=== PATIENT | female | born 1965 | race African-American/Black ===

== ENCOUNTER 2017-03-16 08:26 | Emergency (ER) | payer SELFPAY ==
[2017-03-16 08:34] VITALS: BP 175/103
--- NOTE | 2017-03-16 08:58 | ER Document Report ---
HPI - HPI Patient complains to provider of: toothache Pain Level: Denies Context: patient is a 51 year old female who presents to the ED complaining of swelling and toothache around a fractured tooth that shes had. she states her dentist did not plan on pulling it. she has not had an infection here before, no drainage/foul odor. No dysphagia, dyspnea, fever, chills PMH: HTN - CARDIOVASCULAR Cardiovascular: DENIES: Chest pain - REPRODUCTIVE Reproductive: DENIES: : - DERM Skin Color: Normal Past Medical History - Social History Smoking Status: Current Every Day Smoker Chew tobacco use (# tins/day): No Frequency of alcohol use: Occasional Drug Abuse: None Family History: Reviewed & Not Pertinent Patient has suicidal ideation: No Patient has homicidal ideation: No - Past Medical History Cardiac Medical History: Reports: Hx Hypertension Renal/ Medical History: Denies: Hx Peritoneal Dialysis Past Surgical History: Reports: Hx Section - Immunizations Hx Diphtheria, Pertussis, Tetanus Vaccination: Yes Vertical Provider Document - CONSTITUTIONAL Agree With Documented VS: Yes Exam Limitations: No Limitations General Appearance: WD/WN, No Apparent Distress - INFECTION CONTROL TRAVEL OUTSIDE OF THE [place] IN LAST 30 DAYS: No - HEENT Mouth Diagram: 1 - Fracture, no evidence of abscess Notes: No evidence of peritonsillar abscess, retropharyngeal abscess. Airway is patent. Of peridental abscess or gingivitis. Tender to palpation over to 3 - NECK Neck: Normal Inspection. negative: Lymphadenopathy-Left, Lymphadenopathy-Right Notes: No evidence of Donato angina - RESPIRATORY Respiratory: Breath Sounds Normal, No Respiratory Distress, Chest Non-Tender O2 Sat by Pulse Oximetry: 96 - CARDIOVASCULAR Cardiovascular: Regular Rate, Regular Rhythm, No Murmur Course - Re-evaluation Re-evalutation: 03/16/17 09:39 Patient is a 51-year-old female who is hemodynamically stable, no acute distress and afebrile. No evidence of dental abscess requiring drainage. Will initiate patient on antibiotic and can follow up with dentist - Vital Signs Vital signs: Temp Pulse Resp BP Pulse Ox 98.3 F 101 H 16 175/103 H 96 03/16/17 08:32 03/16/17 08:32 03/16/17 08:32 03/16/17 08:32 03/16/17 08:32 Discharge - Discharge Clinical Impression: Tooth ache Condition: Good Disposition: HOME, SELF-CARE Instructions: Toothache ([facility]), Clindamycin ([facility]) Additional Instructions: Please follow-up with your dentist this week. You can take [id number] advil as needed Prescriptions: Clindamycin HCl 450 mg PO TID 7 Days Forms: Elevated Blood Pressure
== END 2017-03-16 09:00 | disposition home or self-care (01) ==
LOC: ER 08:26
DX: K08.89 Other specified disorders of teeth and supporting structures (principal); R22.0 Localized swelling, mass and lump, head; F17.200 Nicotine dependence, unspecified, uncomplicated
CPT/HCPCS: 99282

== ENCOUNTER 2018-06-04 17:13 | Emergency (ER) | payer SELFPAY ==
[2018-06-04 17:31] VITALS: BP 144/85
--- NOTE | 2018-06-04 17:44 | ER Document Report ---
HPI - HPI Patient complains to provider of: Dental pain Pain Level: 1 Context: Patient is a 52-year-old female complaining of swelling to her left lower jaw 2 days. No fever. No difficulty talking or swallowing. Associated Symptoms: None Exacerbated by: Denies Relieved by: Denies Similar symptoms previously: No Recently seen / treated by doctor: No - ROS Systems Reviewed and Negative: Yes All other systems reviewed and negative - REPRODUCTIVE Reproductive: DENIES: : Past Medical History - General Information source: Patient - Social History Smoking Status: Never Smoker Drug Abuse: None Lives with: Family Family History: Reviewed & Not Pertinent - Past Medical History Cardiac Medical History: Reports: Hx Hypertension Renal/ Medical History: Denies: Hx Peritoneal Dialysis Past Surgical History: Reports: Hx Section - Immunizations Hx Diphtheria, Pertussis, Tetanus Vaccination: Yes Vertical Provider Document - CONSTITUTIONAL Agree With Documented VS: Yes Exam Limitations: No Limitations - INFECTION CONTROL TRAVEL OUTSIDE OF THE [place] IN LAST 30 DAYS: No - HEENT HEENT: Atraumatic, PERRLA Mouth Diagram: 1 - Gingival swelling and tenderness. No abscess - NECK Neck: Normal Inspection, Supple - RESPIRATORY Respiratory: Breath Sounds Normal, No Respiratory Distress - CARDIOVASCULAR Cardiovascular: Regular Rate, Regular Rhythm - MUSCULOSKELETAL/EXTREMETIES Musculoskeletal/Extremeties: MAEW, FROM - NEURO Level of Consciousness: Awake, Alert - DERM Integumentary: Warm, Dry Course - Re-evaluation Re-evalutation: 06/04/18 17:40 History and physical are consistent with uncomplicated dental pain. No signs or symptoms of Donato's angina, peritonsillar abscess or deep tissue infection. Home care, dental follow-up and ED return precautions were discussed with patient. Patient is agreeable with plan and stable for discharge - Vital Signs Vital signs: Temp Pulse Resp BP Pulse Ox 98.1 F 92 18 144/85 H 99 06/04/18 17:28 06/04/18 17:28 06/04/18 17:28 06/04/18 17:28 06/04/18 17:28 Discharge - Discharge Clinical Impression: Pain, dental Condition: Stable Disposition: HOME, SELF-CARE Instructions: Penicillin V K ([facility]), Toothache ([facility]) Additional Instructions: Take antibiotic as prescribed Ibuprofen for discomfort and swelling Follow-up with dental for further evaluation and treatment Prescriptions: Penicillin V Potassium [Penicillin Vk 500 mg Tablet] 500 mg PO BID #20 tablet Referrals: JORJE GO MD [Primary Care Provider] - Follow up as needed
== END 2018-06-04 17:50 | disposition home or self-care (01) ==
LOC: ER 17:13
DX: K08.9 Disorder of teeth and supporting structures, unspecified (principal)
CPT/HCPCS: 99282

== ENCOUNTER 2018-06-13 17:16 | Emergency (ER) | payer SELFPAY ==
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
[2018-06-13 19:31] VITALS: BP 136/87
== END 2018-06-13 19:31 | disposition home or self-care (01) ==
LOC: ER 17:16
DX: S05.12XA Contusion of eyeball and orbital tissues, left eye, initial encounter (principal); Y04.2XXA Assault by strike against or bumped into by another person, initial encounter; Y93.89 Activity, other specified; I10 Essential (primary) hypertension; Z79.899 Other long term (current) drug therapy
CPT/HCPCS: 99283

== ENCOUNTER 2018-10-12 13:53 | Emergency (ER) | payer SELFPAY ==
[2018-10-12 14:09] VITALS: BP 132/81
--- NOTE | 2018-10-12 14:53 | ER Document Report ---
ED Oral Problem - General Chief Complaint: Toothache Stated Complaint: JAW PAIN Time Seen by Provider: 10/12/18 14:32 Mode of Arrival: Ambulatory Information source: Patient Notes: 52-year-old female presented to ED for complaint of dental pain times 2 days and now she has pain in her left lower jaw. She states she has not seen any dentist for dental pain. She states she had some swelling to her left lower jaw yesterday. Patient is alert and oriented respirations regular and unlabored speaking in full sentences walks with a even steady gait. Patient states she has not had any trouble eating or swallowing. When touched the jaw and the gums there is no tenderness. TRAVEL OUTSIDE OF THE [place] IN LAST 30 DAYS: No - HPI Patient complains to provider of: Toothache Onset: Other - Yesterday Quality of pain: Achy Severity: Mild Pain Level: 1 Associated symptoms: Toothache Worsened by: Nothing Relieved by: Nothing Similar symptoms previously: Yes Recently seen / treated by doctor/dentist: No - Related Data Allergies/Adverse Reactions: No Known Allergies Allergy (Unverified 06/04/18 17:16) Past Medical History - General Information source: Patient - Social History Smoking Status: Never Smoker Chew tobacco use (# tins/day): No Frequency of alcohol use: None Drug Abuse: None Lives with: Family Family History: Reviewed & Not Pertinent Patient has suicidal ideation: No Patient has homicidal ideation: No - Past Medical History Cardiac Medical History: Reports: Hx Hypertension Pulmonary Medical History: Reports: None EENT Medical History: Reports: None Neurological Medical History: Reports: None Endocrine Medical History: Reports: None Renal/ Medical History: Reports: None Malignancy Medical History: Reports: None GI Medical History: Reports: None Musculoskeletal Medical History: Reports None Skin Medical History: Reports None Psychiatric Medical History: Reports: None Traumatic Medical History: Reports: None Infectious Medical History: Reports: None Past Surgical History: Reports: Hx Section - x3 - Immunizations Immunizations up to date: Yes Hx Diphtheria, Pertussis, Tetanus Vaccination: Yes Review of Systems - Review of Systems Notes: REVIEW OF SYSTEMS: CONSTITUTIONAL : Denies fever, chills, or sweats. Denies recent illness. EENT: Denies eye, ear, throat, or mouth pain or symptoms. Denies nasal or sinus congestion or discharge. Denies throat, tongue, or mouth swelling or difficulty swallowing. Patient complains of a white swollen area to the lower left jaw. She states the area does not hurt it is just there. She states yesterday her jaw also was swollen but that went down. She states she had some leftover insulin and she took that and she no longer has any swelling. She has not been to the dentist. CARDIOVASCULAR: Denies chest pain. Denies palpitations or racing or irregular heart beat. Denies ankle edema. RESPIRATORY: Denies cough, cold, or chest congestion. Denies shortness of breath, difficulty breathing, or wheezing. GASTROINTESTINAL: Denies abdominal pain or distention. Denies nausea, vomiting , or diarrhea. Denies blood in vomitus, stools, or per rectum. Denies black, tarry stools. Denies constipation. GENITOURINARY: Denies difficulty urinating, painful urination, burning, frequency, blood in urine, or discharge. FEMALE GENITOURINARY: Denies vaginal bleeding, heavy or abnormal periods, irregular periods. Denies vaginal discharge or odor. MUSCULOSKELETAL: Denies back or neck pain or stiffness. Denies joint pain or swelling. SKIN: Denies rash, lesions or sores. HEMATOLOGIC : Denies easy bruising or bleeding. LYMPHATIC: Denies swollen, enlarged glands. NEUROLOGICAL: Denies confusion or altered mental status. Denies passing out or loss of consciousness. Denies dizziness or lightheadedness. Denies headache. Denies weakness or paralysis or loss of use of either side. Denies problems with gait or speech. Denies sensory loss, numbness, or tingling. Denies seizures. PHYSICAL EXAMINATION: GENERAL: Well-appearing, well-nourished and in no acute distress. HEAD: Atraumatic, normocephalic. EYES: Pupils equal round and reactive to light, extraocular movements intact, conjunctiva are normal. ENT: Small white growth to the outer gums on the left lower jaw. No redness or inflammation. Patient denies any tenderness to the right area. The right area vascular in appearance. There is no swelling to the jaw or the face. Moist mucous membranes. NECK: Normal range of motion, supple without lymphadenopathy LUNGS: Breath sounds clear to auscultation bilaterally and equal. No wheezes rales or rhonchi. HEART: Regular rate and rhythm without murmurs ABDOMEN: Soft, nontender, nondistended abdomen. No guarding, no rebound. No masses appreciated. Female : deferred Musculoskeletal: Normal range of motion, no pitting or edema. No cyanosis. NEUROLOGICAL: Cranial nerves grossly intact. Normal speech, normal gait. Normal sensory, motor exams PSYCH: Normal mood, normal affect. SKIN: Warm, Dry, normal turgor, no rashes or lesions noted. PSYCHIATRIC: Denies anxiety or stress. Denies depression, suicidal ideation, or homicidal ideation. ALL OTHER SYSTEMS REVIEWED AND NEGATIVE. Dictation was performed using vi[employer]ood voice recognition software Physical Exam - Vital signs Vitals: Temp Pulse Resp BP Pulse Ox 98.1 F 89 14 132/81 H 97 10/12/18 14:08 10/12/18 14:08 10/12/18 14:08 10/12/18 14:08 10/12/18 14:08 Course - Re-evaluation Re-evalutation: 10/12/18 21:[address] Dozier the strange looking white vascular growth to the left outer of the lower jaw. He came and examined the area also. The area is not tender to palpation there is no redness or swelling. She states it just started a couple days ago. She states it is not been bleeding. Dr. Dozier noted there was to have very small areas that were similar in appearance to the one that is patient stated she had some discomfort yesterday. Doctor recommended that the patient be instructed to follow-up with dentist and oral ENT tomorrow and to be placed on penicillin if she developed any swelling to her jaw again. Patient was discharged home with a prescription for penicillin VK and instructed to follow-up with her dentist by telephone in the morning and schedule a prompt appointment. She was also given the name and number of ENT if she could not get an appointment with her dentist. Patient verbalized understanding and agreement with treatment plan. - Vital Signs Vital signs: Temp Pulse Resp BP Pulse Ox 98.1 F 89 14 132/81 H 97 10/12/18 14:08 10/12/18 14:08 10/12/18 14:08 10/12/18 14:08 10/12/18 14:08 Discharge - Discharge Clinical Impression: White growth to left lower jaw Condition: Stable Disposition: HOME, SELF-CARE Additional Instructions: You were seen today for a growth on your left lower jaw. You state it is not painful. You state your jaw was swollen yesterday but it went away after you took a couple old penicillin. This does not look like an abscess. As you know I had the doctor come and look at it also. Her recommendation is for you to follow-up with a dentist or ENT or an oral surgeon. You stated you would call your dentist in the morning. Will write you a prescription for penicillin if the jaw starts to swell again. Take Tylenol for your pain if it starts to hurt as ibuprofen can raise your blood pressure. UPPER RESPIRATORY ILLNESS: You have a viral infection of the respiratory passages -- a "cold." This common infection causes nasal congestion, drainage, and often sore throat and cough. It is highly contagious. The disease usually lasts about 10 to 14 days. There is no "cure" for the viral infection -- it must run its course. If there is a complication, such as bacterial infection in the nose, sinuses, middle ear, or bronchial tubes, antibiotics may be required. The antibiotics won't affect the virus. Drink plenty of fluids. A humidifier may help. An expectorant medication or decongestant may make you more comfortable. Use acetaminophen or ibuprofen for fever or aches. See the doctor if fever persists over two days, if there is any significant worsening of your symptoms, or if you simply fail to improve as expected. COUGH-SUPPRESSANT & EXPECTORANT MEDICATION: You are to use a cough medication as needed for relief of symptoms. This medicine is a combination of an expectorant (to make the mucous thinner and more easily "coughed up") and a cough suppressant (to reduce the frequency of coughing). The cough-suppressant medicine is related to narcotics. You may experience mild nausea and sleepiness. Some patients who are very sensitive to narcotics may have stomach pain from this medicine. Taking the medicine with food reduces these side effects. Do not drive or work with machinery until you know how this medicine affects you. The expectorant should have no side effects. Iodine-containing expectorants (such as organidin) should not be taken by persons with active thyroid disease unless approved by your doctor. Call the doctor if you develop shortness of breath, hives, rash, itching, lightheadedness, or severe nausea and vomiting. USE OF ACETAMINOPHEN (Tylenol): Acetaminophen may be taken for pain relief or fever control. It's much safer than aspirin, offering a wider range of "safe" dosages. It is safe during . Some brand names are Tylenol, Panadol, Datril, Anacin 3, Tempra, and Liquiprin. Acetaminophen can be repeated every four hours. The following are maximum recommended dosages: >89 pounds or adults 650 mg to 900 mg Acetaminophen can be repeated every four hours. Maximum dose not to exceed 4000 mg a day. FOLLOW-UP CARE: If you have been referred to a physician for follow-up care, call the physician s office for an appointment as you were instructed or within the next two days. If you experience worsening or a significant change in your symptoms, notify the physician immediately or return to the Emergency Department at any time for re-evaluation. Prescriptions: Penicillin V Potassium [Penicillin Vk 500 mg Tablet] 500 mg PO BID #20 tablet Forms: Elevated Blood Pressure Referrals: JORJE GO MD [Primary Care Provider] - Follow up as needed RUBEN TURPIN DO [ASSOCIATE] - Follow up as needed TASNEEM GARCIA MD [ACTIVE STAFF] - Follow up as needed
== END 2018-10-12 15:03 | disposition home or self-care (01) ==
LOC: ER 13:53
DX: K13.70 Unspecified lesions of oral mucosa (principal); K08.89 Other specified disorders of teeth and supporting structures; R68.84 Jaw pain; R22.0 Localized swelling, mass and lump, head; I10 Essential (primary) hypertension
CPT/HCPCS: 99282

== ENCOUNTER 2018-10-27 09:29 | Emergency (ER) | payer SELFPAY ==
[2018-10-27 09:37] VITALS: BP 145/87
--- NOTE | 2018-10-27 10:05 | ER Document Report ---
ED General - General Chief Complaint: Medication Refill Stated Complaint: PROBLEMS WITH BLOOD PRESSURE Time Seen by Provider: 10/27/18 09:51 TRAVEL OUTSIDE OF THE [place] IN LAST 30 DAYS: No - HPI Patient complains to provider of: Medication refill Notes: Patient coming in for evaluation of hypertension and in need of medication refill. Patient states PCP is Dr. libra Chiu went to his office with a note on the front door stating that they have closed at their office patient states that she has been compliant with her blood pressure medication however is running out of her medications at this time he requires refills. Patient otherwise denies any symptoms denies any fevers chills nausea vomiting chest pain abdominal pain headaches dizziness. Patient otherwise is resting comfortably upon my evaluation. - Related Data Allergies/Adverse Reactions: No Known Allergies Allergy (Verified 10/27/18 09:31) Past Medical History - Social History Smoking Status: Unknown if Ever Smoked Family History: Reviewed & Not Pertinent Patient has suicidal ideation: No Patient has homicidal ideation: No - Past Medical History Cardiac Medical History: Reports: Hx Hypertension Renal/ Medical History: Denies: Hx Peritoneal Dialysis Past Surgical History: Reports: Hx Section - x3 - Immunizations Immunizations up to date: Yes Hx Diphtheria, Pertussis, Tetanus Vaccination: Yes Review of Systems - Review of Systems Constitutional: Other - Medication refill EENT: No symptoms reported Cardiovascular: No symptoms reported Respiratory: No symptoms reported Gastrointestinal: No symptoms reported Genitourinary: No symptoms reported Female Genitourinary: No symptoms reported Musculoskeletal: No symptoms reported Skin: No symptoms reported Hematologic/Lymphatic: No symptoms reported Neurological/Psychological: No symptoms reported Physical Exam - Vital signs Vitals: Temp Pulse Resp BP Pulse Ox 98.7 F 93 16 145/87 H 97 10/27/18 09:34 10/27/18 09:34 10/27/18 09:34 10/27/18 09:34 10/27/18 09:34 Interpretation: Normal - General General appearance: Appears well, Alert - HEENT Head: Normocephalic, Atraumatic Eyes: Normal Pupils: PERRL - Respiratory Respiratory status: No respiratory distress Chest status: Nontender Breath sounds: Normal Chest palpation: Normal - Cardiovascular Rhythm: Regular Heart sounds: Normal auscultation Murmur: No - Abdominal Inspection: Normal Distension: No distension Bowel sounds: Normal Tenderness: Nontender Organomegaly: No organomegaly - Back Back: Normal, Nontender - Extremities General upper extremity: Normal inspection, Nontender, Normal color, Normal ROM , Normal temperature General lower extremity: Normal inspection, Nontender, Normal color, Normal ROM , Normal temperature, Normal weight bearing. No: Brianda's sign - Neurological Neuro grossly intact: Yes Cognition: Normal Orientation: AAOx4 Gaudencio Coma Scale Eye Opening: Spontaneous Conrath Coma Scale Verbal: Oriented Gaudencio Coma Scale Motor: Obeys Commands Conrath Coma Scale Total: 15 Speech: Normal Motor strength normal: LUE, RUE, LLE, RLE Sensory: Normal - Psychological Associated symptoms: Normal affect, Normal mood - Skin Skin Temperature: Warm Skin Moisture: Dry Skin Color: Normal Course - Re-evaluation Re-evalutation: 10/27/18 10:04 Patient's labetalol 200 mg twice daily along with lisinopril hydrochlorothiazide 2012.5 twice daily were represcribed to the patient from her bottles patient was instructed to follow-up with PCP is given. - Vital Signs Vital signs: Temp Pulse Resp BP Pulse Ox 98.7 F 93 16 145/87 H 97 10/27/18 09:34 10/27/18 09:34 10/27/18 09:34 10/27/18 09:34 10/27/18 09:34 Discharge - Discharge Clinical Impression: Medication refill Condition: Good Disposition: HOME, SELF-CARE Instructions: High Blood Pressure ([facility]), Family Physicians / Practices Additional Instructions: Please continue your blood pressure medications as prescribed. Please follow- up with the primary care provider listed return to the ER for any concerns Prescriptions: Labetalol HCl [Normodyne 200 mg Tablet] 200 mg PO Q12 #60 tablet Lisinopril/Hydrochlorothiazide [Lisinopril-Hctz 20-12.5 mg Tab] 1 each PO BID # 60 tablet Referrals: THERESA MOLINA MD [ACTIVE STAFF] - Follow up as needed
== END 2018-10-27 10:07 | disposition home or self-care (01) ==
LOC: ER 09:29
DX: I10 Essential (primary) hypertension (principal)
CPT/HCPCS: 99281

== ENCOUNTER 2019-01-12 17:00 | Emergency (ER) | payer SELFPAY | END 2019-01-12 18:10 | disposition left against medical advice (07) | LOC: ER 17:00 | DX: Z53.21 Procedure and treatment not carried out due to patient leaving prior to being seen by health care provider (principal); I10 Essential (primary) hypertension ==

== ENCOUNTER 2019-03-28 09:53 | Emergency (ER) | payer BC ==
[2019-03-28 10:03] VITALS: BP 162/91
--- NOTE | 2019-03-28 10:15 | ER Document Report ---
HPI - HPI Time Seen by Provider: 03/28/19 10:05 Pain Level: 2 Notes: Patient is a 53-year-old female no significant past medical history aside from hypertension who presents to the emergency department complaining of a bump to her left upper eyelid that is been present for 1 week, but improving. Patient states that on occasion she does feel some irritation in the area and is not sure if this is pinkeye or an insect bite. Patient states that early on she did have some matting and discharge associated which has since improved as well. She is otherwise eating and drinking without difficulty. Denies drug allergies. No recent illness. He does not wear contact lenses. No foreign body sensation or light sensitivity. No floaters. Denies any headache, fever, head injury, neck pain, changes in vision/speech/mentation/hearing, URI, sore throat, chest pain, palpitations, syncope, cough, shortness of breath, wheeze, dyspnea, abdominal pain, nausea/vomiting/diarrhea, urinary retention, dysuria, hematuria, or rash. - ROS Systems Reviewed and Negative: Yes All other systems reviewed and negative - REPRODUCTIVE Reproductive: DENIES: : Past Medical History - Social History Smoking Status: Never Smoker Family History: Reviewed & Not Pertinent - Past Medical History Cardiac Medical History: Reports: Hx Hypertension Renal/ Medical History: Denies: Hx Peritoneal Dialysis Past Surgical History: Reports: Hx Section - x3 - Immunizations Immunizations up to date: Yes Hx Diphtheria, Pertussis, Tetanus Vaccination: Yes Vertical Provider Document - CONSTITUTIONAL Agree With Documented VS: Yes Notes: PHYSICAL EXAMINATION: GENERAL: Well-appearing, well-nourished and in no acute distress. A&Ox4 HEAD: Atraumatic, normocephalic. EYES: Pupils equal round and reactive to light, extraocular movements intact, sclera anicteric, conjunctiva left shows very mild episcleritis b/l w/o discharge or matting. Non-tender to palp of the globe and eye itself. No surrounding erythema or swelling noted. Visual acuity 20/20 b/l and in each eye (performed by myself at bedside with my own eye chart). + stye left upper eyelid without obvious abscess/fluctuance. ENT: EAC clear b/l. TM's intact b/l without erythema, fluid, or perforation. Nares patent and without discharge. oropharynx clear without exudates. No tonsilar hypertrophy or erythema. Moist mucous membranes. No sinus tenderness. Uvula midline. No palatine shift. No airway compromise. No drooling or hoarseness. NECK: Normal range of motion, supple without lymphadenopathy. No rigidity/meningismus. LUNGS: Breath sounds clear to auscultation bilaterally and equal. No wheezes rales or rhonchi. HEART: Regular rate and rhythm without murmurs, rubs, gallops. NEUROLOGICAL: Cranial nerves grossly intact. Normal speech, normal gait. Normal sensory, motor exams PSYCH: Normal mood, normal affect. SKIN: Warm, Dry, normal turgor, no rashes or lesions noted. - INFECTION CONTROL TRAVEL OUTSIDE OF THE [place] IN LAST 30 DAYS: No Course - Re-evaluation Re-evalutation: 03/28/19 10:12 Patient is an afebrile, well-hydrated, 53-year-old female who presents to the emergency department with a sty to her left upper eyelid. Vitals are acceptable without significant tachycardia, tachypnea, or hypoxia. PE is otherwise unremarkable. Patient is nontoxic-appearing and is able to tolerate p.o. without difficulty. No labs or imaging warranted. Low suspicion for any retained corneal or lid foreign body, deep space infection including orbital cellulitis/abscess, acute glaucoma, penetrating globe injury, retinal detachment, meningitis, sepsis, fracture, compartment syndrome. I will send home with a prescription for erythromycin ointment to use as directed. Conservative measures otherwise for symptoms with proper handwashing. Recheck with your PCM in 3-5 days. Consider follow-up with ophthalmology. Return to the ED with any worsening/concerning symptoms otherwise as reviewed in discharge. Patient is in agreement. - Vital Signs Vital signs: Temp Pulse Resp BP Pulse Ox 99.7 F 91 18 162/91 H 98 03/28/19 10:02 03/28/19 10:02 03/28/19 10:02 03/28/19 10:02 03/28/19 10:02 Discharge - Discharge Clinical Impression: Melissa Qualifiers: Laterality: left Eyelid: upper Qualified Code(s): H00.014 - Hordeolum externum left upper eyelid Condition: Stable Disposition: HOME, SELF-CARE Instructions: Katie ([facility]) Additional Instructions: Keep eyes clean Avoid scratching/touching eyes Wash hands regularly Use eye drops as directed Maintain adequate fluid intake tylenol/ibuprofen as needed over the counter cold medication as needed for symptoms F/u: with your PCM in 3-5 days for a recheck Consider consult with Ophthalmology for ongoing/worsening symptoms Return to the ED with any worsening symptoms and/or development of fever, headache, changes in vision, eye pain, worsening eye redness, redness around the eyes, purulent discharge, sore throat, facial swelling, neck pain/stiffness, chest pain, palpitations, syncope, shortness of breath, trouble breathing, abdominal pain, n/v/d, blood in stool/urine, dysuria, or other worsening symptoms that are concerning to you. Prescriptions: Erythromycin Base [Erythromycin Oph 1 gm Oint Ud] 1 applic OP QID #1 tube Forms: Elevated Blood Pressure Referrals: JACKSON ROBLES MD [ACTIVE STAFF] - Follow up as needed
== END 2019-03-28 10:20 | disposition home or self-care (01) ==
LOC: ER 09:53
DX: H00.014 Hordeolum externum left upper eyelid (principal); I10 Essential (primary) hypertension
CPT/HCPCS: 99282

== ENCOUNTER 2020-05-25 13:23 | Emergency (ER) | payer SELFPAY ==
[2020-05-25 14:14] VITALS: BP 174/98
--- NOTE | 2020-05-25 14:50 | ER Document Report ---
HPI - HPI Time Seen by Provider: 05/25/20 14:35 Notes: 54-year-old female presents to the emergency room today with complaints of having left-sided hearing loss, she thinks this is due to cerumen impaction. Denies any fevers or chills. Denies any trauma to her ear. Patient states she has never had any cerumen issues in the past, was unable to get into her primary care provider. Denies any ear pain. Tried cgzz-wyk-jehnlue eardrops without relief to help loosen the cerumen. Denies fevers, chills, chest pain,palpitations, shortness of breath, dyspnea, nausea, vomiting, diarrhea, abdominal pain, hematuria,blurred vision, double vision, loss of vision, speech changes, LH, dizziness, syncope, headaches, wheezing, ST, URI, neck pain, weakness, bowel or bladder dysfunction, saddle anesthesia, numbness or tingling in bilateral upper or lower extremities equally, muscle paralysis, weakness in bilateral upper or lower extremities equally or rash. Denies IV drug use. MEDICATIONS: I agree with the patient medications as charted by the RN. ALLERGIES: I agree with the allergies as charted by the RN. PAST MEDICAL HISTORY/PAST SURGICAL HISTORY: Reviewed and agree as charted by RN. SOCIAL HISTORY: Reviewed and agree as charted by RN. FAMILY HISTORY: No significant familial comorbid conditions directly related to patient complaint EXAM: Reviewed vital signs as charted by RN. REVIEW OF SYSTEMS:reviewed vital signs by RN CONSTITUTIONAL : Denies fever, chills, or sweats. Denies recent illness. EENT: Reports hearing loss on her left side. denies eye, ear, throat, or mouth pain or symptoms. Denies nasal or sinus congestion or discharge. Denies throat, tongue, or mouth swelling or difficulty swallowing. CARDIOVASCULAR: Denies chest pain. Denies palpitations or racing or irregular heart beat. Denies ankle edema. RESPIRATORY: Denies cough, cold, or chest congestion. Denies shortness of breath, difficulty breathing, or wheezing. GASTROINTESTINAL: Denies abdominal pain or distention. Denies nausea, vomiting, or diarrhea. Denies blood in vomitus, stools, or per rectum. Denies black, tarry stools. Denies constipation. GENITOURINARY: Denies difficulty urinating, painful urination, burning, frequency, blood in urine, or discharge. FEMALE GENITOURINARY: Denies vaginal bleeding, heavy or abnormal periods, irregular periods. Denies vaginal discharge or odor. MUSCULOSKELETAL: Denies back or neck pain or stiffness. Denies joint pain or swelling. SKIN: Denies rash, lesions or sores. HEMATOLOGIC : Denies easy bruising or bleeding. LYMPHATIC: Denies swollen, enlarged glands. NEUROLOGICAL: Denies confusion or altered mental status. Denies passing out or loss of consciousness. Denies dizziness or lightheadedness. Denies headache. Denies weakness or paralysis or loss of use of either side. Denies problems with gait or speech. Denies sensory loss, numbness, or tingling. Denies seizures. PSYCHIATRIC: Denies anxiety or stress. Denies depression, suicidal ideation, or homicidal ideation. ALL OTHER SYSTEMS REVIEWED AND NEGATIVE. PHYSICAL EXAMINATION: GENERAL: Well-appearing, well-nourished and in no acute distress. HEAD: Atraumatic, normocephalic. EYES: Pupils equal round and reactive to light, extraocular movements intact, conjunctiva are normal. ENT: Left external canal with cerumen impaction, right external canal with scant cerumen, TM intact, no erythema. nares patent, oropharynx clear without exudates. Moist mucous membranes. NECK: Normal range of motion, supple without lymphadenopathy LUNGS: Breath sounds clear to auscultation bilaterally and equal. No wheezes rales or rhonchi. HEART: Regular rate and rhythm without murmurs ABDOMEN: Soft, nontender, nondistended abdomen. No guarding, no rebound. No masses appreciated. Female : deferred Musculoskeletal: Normal range of motion, no pitting or edema. No cyanosis. NEUROLOGICAL: Cranial nerves grossly intact. Normal speech, normal gait. Normal sensory, motor exams PSYCH: Normal mood, normal affect. SKIN: Warm, Dry, normal turgor, no rashes or lesions noted. Dictation was performed using [employer] voice recognition software - REPRODUCTIVE Reproductive: DENIES: : Past Medical History - General Information source: Patient - Social History Smoking Status: Unknown if Ever Smoked Family History: Reviewed & Not Pertinent - Past Medical History Cardiac Medical History: Reports: Hx Hypertension Renal/ Medical History: Denies: Hx Peritoneal Dialysis Past Surgical History: Reports: Hx Section - x3 - Immunizations Immunizations up to date: Yes Hx Diphtheria, Pertussis, Tetanus Vaccination: Yes Vertical Provider Document - CONSTITUTIONAL Agree With Documented VS: Yes Exam Limitations: No Limitations General Appearance: WD/WN - INFECTION CONTROL TRAVEL OUTSIDE OF THE [place] IN LAST 30 DAYS: No Course - Re-evaluation Re-evalutation: 05/25/20 17:19 Afebrile vital stable no distress. Nurses notes reviewed. Left cerumen lavage done by PCT with out incident, patient tolerated procedure without incident. Status post lavage, left cerumen left external canal without any cerumen, TM intact without any erythema. States her hearing improved 100% on the left . discussed with patient to follow-up with PCP, use Debrox for her right external ear canal. After performing a Medical Screening Examination, I estimate there is LOW risk for malignant otitis media, mastoiditis, MENINGITIS, or ACUTE CORONARY SYNDROME, thus I consider the discharge disposition reasonable. I have reevaluated this patient multiple times and no significant life threatening changes are noted. The patient and I have discussed the diagnosis and risks, and we agree with discharging home to follow-up on an outpatient basis with the understanding that symptoms and presentations can change. We also discussed returning to the Emergency Department immediately if new or worsening symptoms occur. We have discussed the symptoms which are most concerning (e.g., high fevers, confusion) that necessitate immediate return. - Vital Signs Vital signs: Temp Pulse Resp BP Pulse Ox 98.7 F 79 18 174/98 H 05/25/20 14:10 05/25/20 14:10 05/25/20 14:10 05/25/20 14:10 Discharge - Discharge Clinical Impression: Excessive cerumen in both ear canals Condition: Stable Disposition: HOME, SELF-CARE Instructions: Cerumen Impaction ([facility]) Additional Instructions: Please follow-up with primary care provider as needed. Use Debrox drops as directed. Return immediately for any new or worsening symptoms. Follow up with primary care provider, call tomorrow to make followup appointment. Prescriptions: Carbamide Peroxide [Debrox 6.5 % Otic Drops 15 ml] 10 drop OT BID #1 bottle Referrals: TASNEEM GARCIA MD [ACTIVE STAFF] - Follow up as needed LUKE COLE MD [ACTIVE STAFF] - Follow up as needed
== END 2020-05-25 15:54 | disposition home or self-care (01) ==
LOC: ER 13:23
DX: H61.23 Impacted cerumen, bilateral (principal); I10 Essential (primary) hypertension
CPT/HCPCS: 99282